=== PATIENT | female | born 1950 | race Caucasian/White ===

== ENCOUNTER 2023-09-06 21:02 | Inpatient (IN) | payer OTHER ==
[~2023-09-06] VITALS: Ht 157.5 cm; Wt 98.8 kg
[2023-09-06 21:31] VITALS: O2SAT 93
[2023-09-06] MEDS: PIPERACILLIN-TAZO 4.5GM 100 ML IV ONE (22:43)
[2023-09-06 22:46] LABS: Basophils # (auto) 0.1 10 ^3/uL (0-0.2); Basophils % (auto) 0.4 % (0.0-2.0); Eosinophils # (auto) 0 10 ^3/uL (0-0.8); Eosinophils % (auto) 0.1 % (0.0-7.0); Hematocrit 37.4 % (36.0-46.0); Hemoglobin 12.4 g/dL (12.2-16.2); Lymphocytes # (auto) 0.7 10 ^3/uL (0.4-5.4); Lymphocytes % (auto) 5.8 % (10.0-50.0); Mean Corpuscular Hemoglobin 28.1 pg (28.0-32.0); Mean Corpuscular Hgb Conc. 33.1 g/dL (32.0-36.0); Monocytes % (auto) 8.3 % (0.0-12.0); Neutrophils # (auto) 10.7 10 ^3/uL (1.6-8.6); Neutrophils % (auto) 85.4 % (37.0-80.0); Red Cell Distribution Width 15.1 % (11.8-14.3); White Blood Cell 12.6 10^3/uL (4.4-10.8)
[2023-09-06 23:05] LABS: INR 1.04 (0.9-1.15); Partial Thromboplastin Time 24.2 SEC (24.5-34.5)
[2023-09-06 23:09] LABS: Alanine Aminotransferase 15 U/L (7-40); Alkaline Phosphatase 164 U/L (46-116); Anion Gap 7 (5-15); Aspartate Aminotransferase 47 U/L (13-40); BUN/Creatinine Ratio 18.9 (10.0-20.0); Bilirubin, Total 0.8 mg/dL (0.2-1.0); Blood Urea Nitrogen 17 mg/dL (9-23); Calcium 9.5 mg/dL (8.5-10.1); Carbon Dioxide 27 mmol/L (20-30); Chloride 105 mmol/L (98-107); Glucose 130 mg/dL (74-106); Potassium 3.7 mmol/L (3.5-5.1); Sodium 139 mmol/L (136-145); Total Protein 6.7 g/dL (5.7-8.2)
[2023-09-06] MEDS: ACETAMINOPHEN 500 MG TAB PO ONE (23:55)
[2023-09-07] VITALS (23 sets, daily range): BP systolic 110–142; BP diastolic 43–73; PULSE 74–97; RESP 16–20; TEMP 96.8–98.7; O2SAT 90–99
[2023-09-07] MEDS ORDERED: HYDROcodone-ACET 5/325MG TAB PO PRN
[2023-09-07] MEDS ORDERED: hydrALAZINE HCL 10 MG TAB PO PRN
[2023-09-07] MEDS ORDERED: ONDANSETRON HCL 4 MG/2 ML VIAL IV PRN
[2023-09-07] MEDS ORDERED: ACETAMINOPHEN 325 MG TAB PO PRN
[2023-09-07 00:14] LABS: Base Excess -0.3 mmol/L (-2.0-2.0)
[2023-09-07 00:16] LABS: Rapid Influenza A Negative (Negative)
[2023-09-07 00:17] LABS: COVID19 ANTIGEN SOFIA FIA NEGATIVE (NEGATIVE); Rapid Influenza B Negative (Negative)
[2023-09-07] MEDS: FUROSEMIDE 40 MG/4 ML VIAL IV ONE (00:26)
[2023-09-07] MEDS: methylPREDNISolone SOD SUCC 40 MG/ML VL IV SCH (00:26)
[2023-09-07] MEDS: IPRATROPIUM BROM 0.5 MG/2.5ML INH SOL NEB SCH (02:00)
[2023-09-07] MEDS ORDERED: NAPR-759 PO (04:35)
[2023-09-07] MEDS: PIPERACILLIN-TAZOB 3.375GM 100 ML IV SCH (05:45)
[2023-09-07] MEDS: PANTOPRAZOLE 40 MG/10 ML VIAL INJ IV SCH (11:38)
[2023-09-07] MEDS: ENOXAPARIN SOD 40 MG/0.4 ML SYRINGE SC SCH (11:38)
[2023-09-08] VITALS (20 sets, daily range): BP systolic 124–133; BP diastolic 56–65; PULSE 70–87; RESP 16–20; TEMP 97.5–98.2; O2SAT 85–99
[2023-09-09] VITALS (21 sets, daily range): BP systolic 132–162; BP diastolic 64–80; PULSE 75–86; RESP 14–20; TEMP 97.7–98.4; O2SAT 93–100
[2023-09-09 07:05] LABS: Basophils # (auto) 0 10 ^3/uL (0-0.2); Basophils % (auto) 0.1 % (0.0-2.0); Eosinophils # (auto) 0 10 ^3/uL (0-0.8); Hematocrit 38.3 % (36.0-46.0); Hemoglobin 12.4 g/dL (12.2-16.2); Lymphocytes # (auto) 0.8 10 ^3/uL (0.4-5.4); Lymphocytes % (auto) 6.6 % (10.0-50.0); Mean Corpuscular Hemoglobin 27.7 pg (28.0-32.0); Mean Corpuscular Hgb Conc. 32.4 g/dL (32.0-36.0); Mean Corpuscular Volume 85.5 fL (80.0-100.0); Monocytes # (auto) 0.7 10 ^3/uL (0-1.3); Monocytes % (auto) 5.5 % (0.0-12.0); Neutrophils # (auto) 10.9 10 ^3/uL (1.6-8.6); Neutrophils % (auto) 87.8 % (37.0-80.0); Nucleated Red Blood Cells % 0.1 %; Red Blood Cells 4.48 10^6/uL (4.0-5.20); Red Cell Distribution Width 14.6 % (11.8-14.3); White Blood Cell 12.4 10^3/uL (4.4-10.8)
[2023-09-09 09:47] LABS: Chloride 102 mmol/L (98-107); Potassium 4.6 mmol/L (3.5-5.1); Sodium 138 mmol/L (136-145)
[2023-09-09 09:48] LABS: Anion Gap 3 (5-15); Carbon Dioxide 33 mmol/L (20-30)
[2023-09-09 09:49] LABS: Calcium 9.2 mg/dL (8.5-10.1)
[2023-09-09 09:53] LABS: Glucose 192 mg/dL (74-106)
[2023-09-09 09:54] LABS: BUN/Creatinine Ratio 17.9 (10.0-20.0); Blood Urea Nitrogen 17 mg/dL (9-23)
[2023-09-09] MEDS: IPRATROPIUM BROM 0.5 MG/2.5ML INH SOL NEB SCH (23:59)
[2023-09-10] VITALS (18 sets, daily range): BP systolic 129–162; BP diastolic 53–77; PULSE 50–87; RESP 16–19; TEMP 97.7–98.5; O2SAT 91–100
[2023-09-10] MEDS ORDERED: DOXY-448 PO (14:11)
[2023-09-11] VITALS (9 sets, daily range): BP systolic 139–153; BP diastolic 55–59; PULSE 72–85; RESP 18–20; TEMP 97.4–98.8; O2SAT 91–95
[2023-09-11] MEDS ORDERED: DOXY-286 PO (15:37)
== END 2023-09-11 18:54 | disposition home health service (06) | DRG 177 ==
LOC: ER 21:02 → EDSEX 21:02 → EDBD 21:02 → TELE 09-07 00:08 → TELE-WESTW 09-07 01:07
PROVIDERS: ADMIT Nurse Practitioner Family; ATTEND Nurse Practitioner Family
DX: J15.69 Pneumonia due to other Gram-negative bacteria (principal); J96.01 Acute respiratory failure with hypoxia; J98.11 Atelectasis; L03.115 Cellulitis of right lower limb; J15.9 Unspecified bacterial pneumonia; E87.70 Fluid overload, unspecified; M17.0 Bilateral primary osteoarthritis of knee; I89.0 Lymphedema, not elsewhere classified; Z20.822 Contact with and (suspected) exposure to COVID-19; M21.061 Valgus deformity, not elsewhere classified, right knee; Z99.3 Dependence on wheelchair; Z87.891 Personal history of nicotine dependence; Z82.61 Family history of arthritis
CPT/HCPCS: 36415; 36600; 71045; 73700; 80048; 80053; 82805; 83605; 83735; 83880; 84484; 85025; 85610; 85730; 87040; 87426; 87804; 93005; 93306; 93970; 94640; 97110; 97116; 97163; 97530; C9113; G0378; J2543